=== PATIENT | female | born 1955 | race Caucasian/White ===

== ENCOUNTER 2017-12-17 13:52 | Day surgery (SDC) | payer OTHER ==
[2017-12-17] MEDS ORDERED: LIDOCAINE 2% (SDV) 5 ML INJ (20:31)
[2017-12-17] MEDS ORDERED: PROPOFOL 60 ML (20:31)
== END 2017-12-17 18:44 | disposition home or self-care (01) ==
LOC: GIL 13:52
DX: K29.30 Chronic superficial gastritis without bleeding (principal)
CPT/HCPCS: 43239; 88305; 88312